=== PATIENT | female | born 1985 | race Caucasian/White ===

== ENCOUNTER 2018-11-18 19:00 | Inpatient (IN) | payer OTHER, SELFPAY ==
[2018-11-18 19:19] VITALS: BMI 31.8
[2018-11-18] MEDS: Lactated Ringers 1,000 ML 50 ML IV (19:50)
[2018-11-18 20:13] LABS: Hematocrit 30.9 % (37-47); Hemoglobin 10.2 g/dL (12.0-15.0); Lymphocyte % 20.4 % (19-41); Mean Corpuscular Hgb 27.2 pg (27.0-32.0); Mean Corpuscular Volume 82.4 fL (81-99); Mean Platelet Vol. 10.4 fl (6.2-12.0); Monocyte% 7.3 % (0-10); Neutrophil % 70.5 % (47-70); Platelet Count 235 K/mm3 (150-450); RBC Distribution Width CV 13.2 % (11.6-14.6); RBC Distribution Width SD 39.7 fl (35.1-43.9); Red Blood Count 3.75 M/mm3 (4.2-5.4); White Blood Count 10.2 K/mm3 (4.4-11.0)
[2018-11-18 20:14] LABS: Absolute Lymphocyte Count 2.08 X10^3/uL (0.83-4.51); Absolute Neutrophil Count 7.2 X10^3/uL (2.0-7.7); Basophil# 0.05 X10^3/uL; Basophil% 0.5 % (0-1); Eosinophil# 0.07 X10^3/uL; Eosinophils% 0.7 % (0-5); Lymphocyte # 2.08 X10^3/ul (4.0); Monocyte# 0.74 X10^3/uL; NRBC Flagged by Analyzer 0 % (0-5)
[2018-11-18] MEDS: Oxytocin 30 units/NS 500 ml 30 UNITS/500 ML IV.SOLN IV (20:15)
[2018-11-18] MEDS: 0.9% Normal Saline 100 ML IV.SOLN. IY (20:35)
--- NOTE | 2018-11-18 21:02 | PCM.HP.OB ---
History Date of Admission: 11/18/18 Final MONIQUE: 11/17/18 Final MONIQUE Source: US <20 weeks Gestational age: 40 Weeks and 1 Days History of this : This is a 33 year-old, , at 40.1 weeks gestational age for elective induction of labor. Patient denies any vaginal bleeding, leaking fluid. Reports good movement. Reports irregular contractions. Allergies No Known Allergies Allergy (Verified 11/18/18 20:20) Home Medications: Home Medications Pnv No.103/Folic/Om3s/Fish Oil [ Gummies] 1 ea PO 11/18/18 Alcohol: None Number of Fetus(es): 1 History Past Pregnancies: Past Pregnancies Delivery Date Name GA/Weeks Outcome Route Weight Gender Labor Length Anesthesia Delivery Location Provider FOB Labs: B+, GBS negative Review of Systems Constitutional: Denies: Anorexia HEENT: Reports: Difficulty Hearing Cardiovascular: Denies: Chest Pain Gastrointestinal: Denies: Abdominal Pain Physical Exam General: Alert, Oriented x3 Abdomen: Soft, Non Tender, Non-Distended, Gravid Neurological: Cranial nerves II-XII grossly intact SUPERVISOR FRAME SAMPLE AND PATTERN: Normal external genitalia Estimated gestational size: Appropriate for gestational size Presentation: Cephalic Cervix Dilation (cm): 3 Station: -2 Effacement (%): 70 Assessment/Plan This is a 33 year-old, G 1P0 at 40.1 weeks gestation presents for elective induction of labor admit to L&D monitor FHR/toco anticipate pain mgmt if requested Pitocin for IOL
[2018-11-19] MEDS: Lactated Ringers 1,000 ML 200 ML IV ×2 (03:24→08:26)
[2018-11-19] MEDS: Lactated Ringers 500 ML 999 ML IV (08:42)
[2018-11-19] MEDS: fentaNYL-bupivacaine (epidural) 100 ML BAG EPIDURAL (09:54)
[2018-11-19] MEDS: Oxytocin 30 units/NS 500 ml 30 UNITS/500 ML IV.SOLN 334 UNITS IV (13:34)
--- NOTE | 2018-11-19 14:06 | PCM.OPRPT ---
Report of Operation Date of Procedure: 11/19/18 Pre-Operative Diagnosis: labor Post-Operative Diagnosis: same Surgery/Procedure Performed:: Vaginal Delivery Maternal Presentation: Elective Induction Method of Induction: Pitocin, Amniotomy Amniotic Membrane Rupture Type: Artificial Amniotic Fluid Description: Clear Final MONIQUE: 11/17/18 Final MONIQUE Source: US <20 weeks Gestational age: 40 Weeks and 2 Days Date of Procedure: 11/19/18 Pre-Operative Diagnosis: labor Post-Operative Diagnosis: same Surgery/ Procedure Performed: Spontaneous Vaginal Delivery Type of Anesthesia: Epidural Description of Procedure: A vigorous female was delivered SAHIL over partial third-degree laceration. The remainder the infant was delivered with maternal pushing and gentle traction only in less than 15 seconds. The Pitocin infusion was initiated for active management of the third stage. The cord was clamped and cut after 1 minute. The was attended to by the waiting nursing staff. The placenta was delivered spontaneously and intact. The cervix and vagina were intact. The superior edge of the external anal sphincter capsule reapproximated with 2 [id number] 2-0 PDS sutures. The left vaginal sulcus tear was closed with a deep layer of 3-0 Vicryl Rapide suture in a running standard fashion. The remainder portion of the laceration was then repaired with 3-0 Vicryl suture in a running standard fashion. Sponge and needle counts were correct. A vaginal sweep was completed by me. Presentation: SAHIL Placental Delivery Description: Spontaneous Placenta Disposition: [facility] Cord Vessel Description: 3 Vessels Cord Entanglement: None Drain: Mera to straight drain Estimated Blood Loss: 500 A gender: Female - Tatyana (1 minute): 8 (5 minute): 9 Episiotomy Description: None Laceration: 3rd degree - parital disruption of superior edge of external anal sphincter Medications given after delivery: IV Pitocin Complications: None
[2018-11-19] MEDS: 0.9% Saline Lock 10 ML Syringe IV (16:14)
[2018-11-19] MEDS: Naproxen 250 MG Tablet 500 MG PO (17:24)
[2018-11-19 19:46] VITALS: BP 123/69; PULSE 67; RESP 14; TEMP 36.8; O2SAT 97
[2018-11-19] MEDS: Acetaminophen 500 MG Tablet 1000 MG PO (22:17)
[2018-11-19 23:38] VITALS: BP 116/70; PULSE 71; RESP 17; TEMP 36.9; O2SAT 96
[2018-11-20 05:00] VITALS: BP 119/69; PULSE 82; RESP 16; TEMP 36.7; O2SAT 97
[2018-11-20] MEDS: Naproxen 250 MG Tablet 500 MG PO ×2 (05:16→14:04)
[2018-11-20] MEDS: Senna/Docusate Sodium 1 Tablet PO (05:16)
[2018-11-20 05:17] LABS: Hematocrit 28.4 % (37-47); Hemoglobin 9.1 g/dL (12.0-15.0); Mean Corpuscular Hgb 26.8 pg (27.0-32.0); Mean Corpuscular Volume 83.5 fL (81-99); Mean Platelet Vol. 9.7 fl (6.2-12.0); Platelet Count 193 K/mm3 (150-450); RBC Distribution Width CV 13.3 % (11.6-14.6); White Blood Count 13.1 K/mm3 (4.4-11.0)
[2018-11-20 08:10] VITALS: BP 109/70; PULSE 75; RESP 16; TEMP 36.9; O2SAT 97
--- NOTE | 2018-11-20 13:05 | PCM.PN.OB ---
Subjective: Denies complaints - Physical Exam General: Alert, Oriented x3 Abdomen: Soft, Non Tender, Non-Distended - ff mid & below umb Extremities: No Calf Tenderness Vital Signs Temp Pulse Resp BP Pulse Ox 98.5 F 75 16 109/70 97 11/20/18 08:10 11/20/18 08:10 11/20/18 08:10 11/20/18 08:10 11/20/18 08:10 Oxygen Delivery Method Room Air Weight: 215 lb 6.266 oz Body Mass Index (BMI) 31.8 Intake and Output for Last 24 Hours 11/18/18 11/19/18 11/20/18 23:59 23:59 23:59 Intake Total 7.83 / 7.83 5430.81 / 5430.81 Output Total 775 / 775 3675 / 3675 Balance -767.17 / -767.17 1755.81 / 1755.81 Laboratory Tests Past 24 Hrs 11/20/18 05:07 WBC 13.1 H RBC 3.40 L Hgb 9.1 L Hct 28.4 L MCV 83.5 MCH 26.8 L MCHC 32.0 RDW Std Deviation 40.0 RDW Coeff of Ken 13.3 Plt Count 193 MPV 9.7 Medical Necessity - Tobacco Use Smoking Status: Former smoker Assessment/Plan PPD#1 Routine care Heme - cbc reviewed
[2018-11-20 14:30] VITALS: BP 120/65; PULSE 82; RESP 16; TEMP 37
[2018-11-20 20:29] VITALS: BP 117/65; PULSE 76; RESP 16; TEMP 37.1
[2018-11-21 01:37] VITALS: BP 128/71; PULSE 66; RESP 16; TEMP 36.8
--- NOTE | 2018-11-21 08:12 | PCM.PN.OB ---
Subjective: She is seen at bedside, doing well. Patient reports good pain control. Urinating without difficulty. Mild lochia. Patient denies bowel movement at this time. Breast-feeding is going well. - Physical Exam General: Alert, Oriented x3 Abdomen: Soft, Non Tender, Non-Distended, - - fundus firm Extremities: No Calf Tenderness Vital Signs Temp Pulse Resp BP Pulse Ox 98.2 F 66 16 128/71 H 97 11/21/18 01:37 11/21/18 01:37 11/21/18 01:37 11/21/18 01:37 11/20/18 08:10 Oxygen Delivery Method Room Air Weight: 97.7 kg Body Mass Index (BMI) 31.8 Intake and Output for Last 24 Hours 11/19/18 11/20/18 11/21/18 23:59 23:59 23:59 Intake Total 5430.81 / 5430.81 Output Total 3675 / 3675 Balance 1755.81 / 1755.81 Medical Necessity - Tobacco Use Smoking Status: Former smoker Assessment/Plan PPD#2, doing well routine care pain mgmt [facility]
--- NOTE | 2018-11-21 08:13 | DCINST_ITS ---
Discharge Diet: No Restrictions Discharge Activity: Return to Normal Activity, May not drive while taking narcotic pain medications., May Shower May resume sexual activity in: 4-6 weeks Additional Activity Instructions:: Nothing in the vagina for 4-6 weeks. You may return to work/school in 6 weeks. Call your doctor if your incision/area has: Continuous Slow Oozing, Sudden Increased Bleeding, Increased Pain/ Swelling, Increased Redness, Foul Smelling Discharge Additional Instructions: If you experience any of the following, contact your healthcare provider. * Bleeding that soaks a pad every hour for 2 hours * Fever 100.4 or higher * Unrelieved incision or abdominal pain * Swelling, redness, discharge or bleeding from your incision or episiotomy site * Your incision begins to separate * Problems urinating (including inability to urinate or burning while urinating). * Visual changes * Severe headache * Flu-like symptoms * Pain or redness in one of both of your breasts * Pain, warmth, tenderness or swelling in your legs, especially the calf area * Frequent nausea and vomiting * Symptoms of depression or anxiety If you experience any of the following, call 911 or go to the nearest Emergency Room. * Chest pain * Problems breathing * Seizure activity * Partial or complete paralysis of a body part, slurred speech, weakness or drooping of the face, or a sudden inability to walk or hold your balance Allergies/Adverse Reactions: Allergies No Known Allergies Allergy (Verified 11/18/18 20:20) Medications to take at Discharge Pnv No.103/Folic/Om3s/Fish Oil [ Gummies] 1 ea PO 11/18/18 Naproxen [Naprosyn] 500 mg PO Q8H PRN PRN #30 tab 11/21/18 Senna/Docusate Sodium [Senokot-S] 1 - 2 tab PO DAILY PRN PRN #30 tab 11/21/18 The following prescriptions were given: Naproxen [Naprosyn] 500 mg PO Q8H PRN PRN #30 tab PRN Reason: MILD PAIN () Transmission Status: Pending to [id number] Senna/Docusate Sodium [Senokot-S] 1 - 2 tab PO DAILY PRN PRN #30 tab PRN Reason: Constipation Transmission Status: Pending to [id number] Please Follow Up With: Gisele Mujica MD When: Call to make an appointment with your doctor in 2 weeks. Primary Care Physician: Juli Nick MD [Primary Care Provider] - Test Results: Test results from this visit will be discussed in further detail at your follow- up appointment, if applicable.
--- NOTE | 2018-11-21 08:13 | PCM.DCVAG ---
Discharge Diet: No Restrictions Discharge Activity: Return to Normal Activity, May not drive while taking narcotic pain medications., May Shower May resume sexual activity in: 4-6 weeks Additional Activity Instructions:: Nothing in the vagina for 4-6 weeks. You may return to work/school in 6 weeks. Call your doctor if your incision/area has: Continuous Slow Oozing, Sudden Increased Bleeding, Increased Pain/ Swelling, Increased Redness, Foul Smelling Discharge Additional Instructions: If you experience any of the following, contact your healthcare provider. Bleeding that soaks a pad every hour for 2 hours Fever 100.4 or higher Unrelieved incision or abdominal pain Swelling, redness, discharge or bleeding from your incision or episiotomy site Your incision begins to separate Problems urinating (including inability to urinate or burning while urinating). Visual changes Severe headache Flu-like symptoms Pain or redness in one of both of your breasts Pain, warmth, tenderness or swelling in your legs, especially the calf area Frequent nausea and vomiting Symptoms of depression or anxiety If you experience any of the following, call 911 or go to the nearest Emergency Room. Chest pain Problems breathing Seizure activity Partial or complete paralysis of a body part, slurred speech, weakness or drooping of the face, or a sudden inability to walk or hold your balance Allergies/Adverse Reactions: Allergies No Known Allergies Allergy (Verified 11/18/18 20:20) Medications to take at Discharge Pnv No.103/Folic/Om3s/Fish Oil [ Gummies] 1 ea PO 11/18/18 Naproxen [Naprosyn] 500 mg PO Q8H PRN PRN #30 tab 11/21/18 Senna/Docusate Sodium [Senokot-S] 1 - 2 tab PO DAILY PRN PRN #30 tab 11/21/18 The following prescriptions were given: Naproxen [Naprosyn] 500 mg PO Q8H PRN PRN #30 tab PRN Reason: MILD PAIN () Transmission Status: Pending to [id number] Senna/Docusate Sodium [Senokot-S] 1 - 2 tab PO DAILY PRN PRN #30 tab PRN Reason: Constipation Transmission Status: Pending to [id number] Please Follow Up With: Gisele Mujica MD When: Call to make an appointment with your doctor in 2 weeks. Primary Care Physician: uJli Nick MD [Primary Care Provider] - Test Results: Test results from this visit will be discussed in further detail at your follow-up appointment, if applicable.
[2018-11-21 08:30] VITALS: BP 120/66; PULSE 90; RESP 18; TEMP 37.2
[2018-11-21] MEDS: Senna/Docusate Sodium 1 Tablet PO (08:56)
[2018-11-21] MEDS: Naproxen 250 MG Tablet 500 MG PO (08:56)
[2018-11-21 08:57] VITALS: BP 120/66; PULSE 84; RESP 18; TEMP 37.2; O2SAT 90
[2018-11-21 12:30] VITALS: BP 124/72; PULSE 90; RESP 18; TEMP 37
--- NOTE | 2018-11-21 13:35 | NURSING ---
This assisted living nursing director reviewed the documentation completed by Davi Webb student nurse and it is complete.
== END 2018-11-21 12:55 | disposition home or self-care (01) | DRG 768 ==
PROVIDERS: Obstetrics & Gynecology; Admitting Provider Obstetrics & Gynecology; Family Provider Internal Medicine; PCP Internal Medicine; Visit Provider Obstetrics & Gynecology
DX: O70.20 Third degree perineal laceration during delivery, unspecified (principal); Z37.0 Single live birth; Z3A.40 40 weeks gestation of pregnancy; Z87.891 Personal history of nicotine dependence
CPT/HCPCS: 59025; 59050; 85025; 85027; 86850; 86900; 86901; 99218; J7120; A4216; G0378